=== PATIENT | female | born 1995 ===

== ENCOUNTER 2018-08-23 22:12 | Emergency (ER) | payer BC, MEDICAID ==
[2018-08-23 22:12] VITALS: BMI 25.7
[2018-08-23 22:15] VITALS: BP 108/61; PULSE 85; RESP 16; TEMP 98.9; O2SAT 99
--- NOTE | 2018-08-23 23:09 | ED PDOC ---
Syncope/Near Syncope/Dizziness Time Seen by Provider: 08/23/18 22:21 Chief Complaint (Nursing): Dizziness/Lightheaded Chief Complaint (Provider): near syncope History Per: Patient History/Exam Limitations: no limitations Onset/Duration Of Symptoms: Mins Current Symptoms Are (Timing): Gone Now Activity At Onset Of Symptoms: Had Just Stood up Associated Symptoms Preceding Syncopal Episode: Lightheadedness Additional Complaint(s): 23 y/o female history of asthma brought in by EMS for evaluation of near- syncopal episode. Patient states she thinks she may have stood up "too quickly" and then started to feel lightheaded and "tingly" as if she was going to pass out. Patient states this has happened before. Patient reports improvement of symptoms currently. Patient denies headache, dizziness, extremity numbness/weakness, chest pain, shortness of breath, palpitations, abdominal pain, leg pain/swelling, drug use. Patient states she had one glass of wine tonight Past Medical History Reviewed: Historical Data, Nursing Documentation, Vital Signs Vital Signs: Last Vital Signs Temp 98.9 F 08/23/18 22:13 Pulse 85 08/23/18 22:13 Resp 16 08/23/18 22:13 BP 108/61 08/23/18 22:13 Pulse Ox 99 08/23/18 22:13 - Medical History PMH: Anemia, Anxiety, Asthma Denies: Depression, Chronic Kidney Disease - Surgical History Surgical History: No Surg Hx - Family History Family History: States: No Known Family Hx - Immunization History Hx Tetanus Toxoid Vaccination: Yes Hx Influenza Vaccination: Yes - Home Medications Home Medications: Ambulatory Orders Medication Instructions Recorded No Known Home Med 12/07/17 - Allergies Allergies/Adverse Reactions: Allergies Allergy/AdvReac Type Severity Reaction Status Date / Time No Known Allergies Allergy Verified 08/23/18 22:13 Review of Systems ROS Statement: Except As Marked, All Systems Reviewed And Found Negative Neurological: Positive for: Other (lightheadedness) Physical Exam - Reviewed Nursing Documentation Reviewed: Yes Vital Signs Reviewed: Yes - Physical Exam Appears: Positive for: Well, Non-toxic, No Acute Distress Head Exam: Positive for: ATRAUMATIC, NORMAL INSPECTION, NORMOCEPHALIC Skin: Positive for: Normal Color Eye Exam: Positive for: Normal appearance ENT: Positive for: Normal ENT Inspection Neck: Positive for: Normal, Painless ROM Cardiovascular/Chest: Positive for: Regular Rate, Rhythm Respiratory: Positive for: Normal Breath Sounds Gastrointestinal/Abdominal: Positive for: Normal Exam Back: Positive for: Normal Inspection Extremity: Positive for: Normal ROM Neurological/Psych: Positive for: Awake, Alert, Oriented (x3) - ECG ECG: Positive for: Viewed By Me (reviewed by ED attending) ECG Rhythm: Positive for: Sinus Rhythm O2 Sat by Pulse Oximetry: 99 - Progress ED Course And Treament: -accucheck -ekg -orthostatics -upreg -udip -cut off saw tender metal Patient states she is feeling better and does not wish to stay in the ED any longer. Vitals stable. Tolerating PO Patient educated on findings, discharged with instructions to follow up PMD within 2-3 days Advised increase hydration Return precautions given Disposition - Clinical Impression Clinical Impression: Near syncope - Patient ED Disposition Is Patient to be Admitted: No Counseled Patient/Family Regarding: Studies Performed, Diagnosis, Need For Followup - Disposition Referrals: [facility] [Outside] Disposition: Routine/Home Disposition Time: 23:45 Condition: IMPROVED Instructions: Near Fainting
--- NOTE | 2018-08-24 09:38 | CARD ---
APPROVED REPORT Date of service: 08/23/2018 EKG Measurement Heart [id number] <Conclusion> Normal sinus rhythm with sinus arrhythmia Incomplete right bundle branch block Borderline ECG
== END 2018-08-24 00:03 | disposition home or self-care (01) ==
LOC: H.ER 22:12
DX: R55 Syncope and collapse (principal)